=== PATIENT | female | born 1960 | race Caucasian/White ===

== ENCOUNTER 2019-03-24 08:07 | Day surgery (SDC) | payer OTHER ==
[~2019-03-24] VITALS: Ht 157.5 cm; Wt 81.4 kg
[~2019-03-24 08:07] MED LIST: TRAM50TA2
[2019-03-24 09:11] VITALS: Ht 157.5 cm; Wt 81.4 kg
[2019-03-24] MEDS ORDERED: SULFAZINE (09:23)
[2019-03-24] MEDS ORDERED: IBUPROFEN (09:23)
[2019-03-24] MEDS ORDERED: PROPOFOL 40 ML ONE (09:35)
--- NOTE | 2019-03-24 09:35 | PREAC ---
Date/Time of Note Date/Time of Note DATE: 03/24/19 TIME: 09:33 Anesthesia Eval and Record Evaluation Time Pre-Procedure Interview DATE: 03/24/19 TIME: 09:33 Age 58 Sex female NPO: 8 hrs Preoperative diagnosis Screening Planned procedure Colonoscopy Past Medical History Past Medical History: Includes Musculoskeletal: Osteoarthritis Surgery & Anesthesia Issues No known issue Meds Anticoagulation: No Beta Maxim within 24 hr: No Reason Beta Maxim not given: Pt. not on B-Maxim Reported Medications [Sulfazine] No Conflict Check 03/24/19 [Ibuprofen] No Conflict Check 03/24/19 Tramadol HCl (Tramadol HCl) 50 Mg Tablet 04/25/10 Meds reviewed: Yes Allergies Coded Allergies: acetaminophen (Verified Allergy, Intermediate, 03/05/15) hydrocodone (Verified Allergy, Intermediate, 03/05/15) Allergies Reviewed: Yes Labs/Studies Labs Reviewed: Reviewed by anesthesiologist test: Negative Pre-procedure Exam Airway: Adequate mouth opening Mallampati: Mallampati II Teeth: Normal Lung: Normal Heart: Normal ASA Physical Status ASA physical status: 2 Emergency: None Planned Anesthetic General/MAC: MAC Pre-operative Attestations Prior to commencing anesthesia and surgery, the patient was re-evaluated, there was verification of: *The patient's identity *The results of appropriate recent lab work and preoperative vital signs *The above evaluation not changing prior to induction *Anesthetic plan, risk benefits, alternative and complications discussed with patient/family; questions answered; patient/family understands, accepts and wishes to proceed. RADHA MCKEON MD Mar 24, 2019 09:35
[2019-03-24 09:52] VITALS: BP 128/60; PULSE 68; RESP 25
--- NOTE | 2019-03-24 10:06 | PAC ---
Date/Time of Note Date/Time of Note DATE: 03/24/19 TIME: 10:05 Post-Anesthesia Notes Post-Anesthesia Note Last documented vital signs VSS Activity: WNL Respiratory function: WNL Cardiovascular function: WNL Mental status: Baseline Pain reasonably controlled: Yes Hydration appropriate: Yes Nausea/Vomiting absent: Yes RADHA MCKEON MD Mar 24, 2019 10:06
[2019-03-24 10:50] VITALS: BP 125/61; PULSE 56; RESP 18
== END 2019-03-24 12:42 | disposition home or self-care (01) ==
LOC: GIL 08:07
PROVIDERS: ATTEND Internal Medicine Gastroenterology
DX: Z12.11 Encounter for screening for malignant neoplasm of colon (principal); K64.8 Other hemorrhoids
CPT/HCPCS: 45378; Z7610